=== PATIENT | female | born 1995 | race Caucasian/White ===

== ENCOUNTER 2021-02-07 12:31 | Emergency (ER) | payer BC ==
[~2021-02-07] VITALS: Ht 154.9 cm; Wt 50.0 kg
[2021-02-07] MEDS ORDERED: BCP PO (12:39)
[2021-02-07] MEDS ORDERED: FLUO10CA16 PO (12:39)
[2021-02-07] MEDS ORDERED: bc (12:39)
[2021-02-07] MEDS ORDERED: NS 1,000 ML IV ONE (13:50)
[2021-02-07 14:43] LABS: BASO % 0.2 % (0.0-1.0); EOS # 0.1 10^3/uL (0.0-0.5); EOS % 2.5 % (0.0-3.0); HEMATOCRIT 39.5 % (36.0-47.0); LYMPH # 1.3 10^3/uL (1.5-5.0); MEAN CORPUSCULAR HEMOGLOBIN 29.1 pg (27.0-33.0); MEAN CORPUSCULAR HGB CONC 32.9 g/dl (32.0-36.5); MEAN CORPUSCULAR VOLUME 88.4 fl (80.0-96.0); MONO # 0.5 10^3/uL (0.0-0.8); MONO % 9.1 % (2.0-8.0); NEUTROPHILS # 3.4 10^3/uL (1.5-8.5); NEUTROPHILS % 64.2 % (36.0-66.0); PLATELET COUNT, AUTOMATED 307 10^3/uL (150-450); RED BLOOD COUNT 4.47 10^6/uL (4.00-5.40); WHITE BLOOD COUNT 5.3 10^3/uL (4.0-10.0)
[2021-02-07 14:53] LABS: AMPHETAMINES LEVEL URINE NEGATIVE (NEGATIVE); BARBITURATES URINE NEGATIVE (NEGATIVE); BENZODIAZEPINES URINE NEGATIVE (NEGATIVE); CANNABINOIDS URINE NEGATIVE (NEGATIVE); COCAINE METABOLITE URINE NEGATIVE (NEGATIVE); HCG, SERUM QUALITATIVE NEGATIVE (NEGATIVE); METHADONE URINE NEGATIVE (NEGATIVE); OPIATES URINE NEGATIVE (NEGATIVE); PHENCYCLIDINE URINE NEGATIVE (NEGATIVE)
[2021-02-07 15:04] LABS: BLOOD UREA NITROGEN 15 MG/DL (7-18); CALCIUM LEVEL 9.9 MG/DL (8.5-10.1); CARBON DIOXIDE LEVEL 29 MEQ/L (21-32); CHLORIDE LEVEL 106 MEQ/L (98-107); CK-MB VALUE MASS < 1.0 NG/ML (<3.6); CPK CREATINE PHOSPHOKINASE 59 U/L (26-192); CREATININE FOR GFR 0.86 MG/DL (0.55-1.30); ETHYL ALCOHOL (ETHANOL) < 0.003 % (0.000-0.010); GLOMERULAR FILTRATION RATE > 60.0 (>60); GLUCOSE, FASTING 93 MG/DL (70-100); MB/CK RELATIVE INDEX 1.69 (< OR =4); SODIUM LEVEL 140 MEQ/L (136-145); THYROID STIMULATING HORMONE 0.745 uIU/ML (0.358-3.740); TROPONIN I < 0.02 NG/ML (< 0.10)
[2021-02-07 16:30] VITALS: BP 121/80
--- NOTE | 2021-02-07 20:23 | ECGEPIP ---
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
== END 2021-02-07 16:44 | disposition home or self-care (01) ==
LOC: M ED 12:31
DX: R55 Syncope and collapse (principal); J30.2 Other seasonal allergic rhinitis; Z79.3 Long term (current) use of hormonal contraceptives